=== PATIENT | male | born 1970 | race Caucasian/White ===

== ENCOUNTER 2021-01-28 14:33 | Emergency (ER) | payer OTHER, SELFPAY | END 2021-01-28 17:50 | disposition home or self-care (01) | LOC: ERS 14:33 | DX: S82.851A Displaced trimalleolar fracture of right lower leg, initial encounter for closed fracture (principal); E11.9 Type 2 diabetes mellitus without complications; W19.XXXA Unspecified fall, initial encounter | CPT/HCPCS: 29125 ==

== ENCOUNTER 2021-01-30 14:36 | Outpatient (CLI) | payer SELFPAY ==
[2021-01-31 02:32] LABS: SARS-CoV-2 PCR by NAA Not Detected (NotDetected)
== END 2021-01-30 14:37 | disposition home or self-care (01) ==
LOC: LABBT 14:36
PROVIDERS: ATTEND Orthopaedic Surgery
DX: Z01.812 Encounter for preprocedural laboratory examination (principal); S82.841A Displaced bimalleolar fracture of right lower leg, initial encounter for closed fracture; Z20.822 Contact with and (suspected) exposure to COVID-19
CPT/HCPCS: 87635; U0003; U0005

== ENCOUNTER 2021-02-04 11:22 | Inpatient (IN) | payer OTHER, SELFPAY ==
[2021-02-04] MEDS ORDERED: Midazolam HCl 2 mg/2 ml Vial ONE (11:41)
[2021-02-04] MEDS ORDERED: Fentanyl 100 MCG/2 ML VIAL ONE (11:42)
[2021-02-04] MEDS ORDERED: Insulin Regular 300 UNITS/3 ML VIAL ONE (12:26)
[2021-02-04] MEDS ORDERED: TETANUS AND DIPHTHERIA TOX/PF 0.5 ML DISP.SYRIN IM SCH (13:15)
[2021-02-04] MEDS ORDERED: Acetaminophen 325 MG TAB PO PRN (13:15)
[2021-02-04 14:17] VITALS: BMI 25.2
[2021-02-04] MEDS ORDERED: Dextrose 5% in Water 1,000 ML IV PRN (19:35)
[2021-02-04] MEDS ORDERED: Dextrose 50% Abboject 50 ML SYRINGE SLOW IVP PRN (19:35)
[2021-02-04 20:02] LABS: #Basophils 0.1 thou/uL (0.0-0.2); #Eosinphils 0.1 thou/uL (0.0-0.7); #Monocytes 0.7 thou/uL (0.11-0.59); #Neutrophils 6.5 thou/uL (1.40-6.50); %Eosinophils 1.2 % (0.0-10.0); %Lymphocytes 21.6 % (21.0-51.0); %Neutrophils 69.2 % (42.0-75.0); Hemoglobin 15.5 g/dL (14.0-18.0); Mean Corpuscular HGB CONC 33.9 g/dL (32.0-36.0); Mean Corpuscular Hemoglobin 29.6 pg (27.0-31.0); Mean Corpuscular Volume 87.3 fL (78.0-98.0); Mean Platelet Volume 9.4 fL (7.4-10.4); Platelet Count 296 thou/uL (130-400); RBC Distribution Width 11.5 % (11.5-14.5); Red Blood Cell (RBC) Count 5.22 mill/uL (4.70-6.10); White Blood Cell (WBC) Count 9.4 thou/uL (4.8-10.8)
[2021-02-04] MEDS: HumaLOG 300 UNITS/3 ML VIAL SC PRN (20:31)
[2021-02-04 20:36] LABS: Anion Gap 17 mmol/L (10-20); BUN (Urea Nitrogen) 21 mg/dL (8.9-20.6); Calc. Creatinine Clearance 98 mL/min (70-130); Calcium 9.3 mg/dL (7.8-10.44); Carbon Dioxide 24 mmol/L (22-29); Chloride 95 mmol/L (98-107); Glucose 387 mg/dL (70-105); Magnesium 1.8 mg/dL (1.6-2.6); Potassium 4.3 mmol/L (3.5-5.1); Sodium 132 mmol/L (136-145)
[2021-02-04 20:40] LABS: Hemoglobin A1c 11.8 % (4.0-6.0)
[2021-02-05] MEDS ORDERED: Oxymetazoline HCl 0.05% (30 ML BOT) NS PRN (01:48)
[2021-02-05] MEDS ORDERED: Loratadine/Pseudoephedrine 10/240 mg Tablet PO SCH (02:00)
[2021-02-05 05:46] LABS: #Basophils 0.1 thou/uL (0.0-0.2); #Eosinphils 0.2 thou/uL (0.0-0.7); #Lymphocytes 3.2 thou/uL (1.20-3.40); #Monocytes 0.9 thou/uL (0.11-0.59); #Neutrophils 6.4 thou/uL (1.40-6.50); %Basophils 0.7 % (0.0-1.0); %Eosinophils 1.7 % (0.0-10.0); %Lymphocytes 29.9 % (21.0-51.0); %Monocytes 7.9 % (0.0-10.0); %Neutrophils 59.8 % (42.0-75.0); Hemoglobin 15.5 g/dL (14.0-18.0); Mean Corpuscular HGB CONC 33.8 g/dL (32.0-36.0); Mean Corpuscular Hemoglobin 29.4 pg (27.0-31.0); Mean Corpuscular Volume 86.9 fL (78.0-98.0); Mean Platelet Volume 9.3 fL (7.4-10.4); Platelet Count 295 thou/uL (130-400); RBC Distribution Width 11.5 % (11.5-14.5); Red Blood Cell (RBC) Count 5.28 mill/uL (4.70-6.10); White Blood Cell (WBC) Count 10.7 thou/uL (4.8-10.8)
[2021-02-05 06:07] LABS: ALT (SGPT) 11 U/L (8-55); AST (SGOT) 12 U/L (5-34); Albumin 3.8 g/dL (3.5-5.0); Alkaline Phosphatase 137 U/L (40-110); Anion Gap 19 mmol/L (10-20); BUN (Urea Nitrogen) 24 mg/dL (8.9-20.6); Bilirubin, Total 0.7 mg/dL (0.2-1.2); Calc. Creatinine Clearance 112 mL/min (70-130); Calcium 9.2 mg/dL (7.8-10.44); Carbon Dioxide 22 mmol/L (22-29); Chloride 95 mmol/L (98-107); Globulin 3.8 g/dL (2.4-3.5); Glucose 300 mg/dL (70-105); Potassium 3.8 mmol/L (3.5-5.1); Protein, Total 7.6 g/dL (6.0-8.3); Sodium 132 mmol/L (136-145)
[2021-02-05] MEDS: HumaLOG 300 UNITS/3 ML VIAL SC PRN ×3 (06:32→22:31)
[2021-02-05] MEDS ORDERED: CEFAZOLIN 2 GM in Premix Bag 1 BAG IVPB SCH (07:15)
[2021-02-05] MEDS ORDERED: Lantus 1000 UNITS/10 ML VIAL SC SCH (07:30)
[2021-02-05] MEDS: Lisinopril 5 MG TAB PO SCH (08:25)
[2021-02-05] MEDS ORDERED: Ropivacaine 0.5% HCl/PF (150 MG/30 ML VIAL) ONE (10:31)
[2021-02-05] MEDS ORDERED: Ropivacaine 2% HCl/PF (20 MG/10 ML VIAL) ONE (10:31)
[2021-02-05] MEDS: Sodium Chloride 0.9% 1,000 ML IV SCH ×2 (12:11→22:32)
[2021-02-05] MEDS ORDERED: Midazolam HCl 2 mg/2 ml Vial ONE ×2 (16:25→16:53)
[2021-02-05] MEDS ORDERED: Fentanyl 100 MCG/2 ML VIAL ONE ×2 (16:53→18:13)
[2021-02-05] MEDS: metFORMIN 850 MG TAB PO SCH (18:08)
[2021-02-05] MEDS ORDERED: Ondansetron PF 4 MG/2 ML Vial ONE (18:20)
[2021-02-05] MEDS ORDERED: Ketorolac Tromethamine 30 MG/ML VIAL ONE (18:20)
[2021-02-05] MEDS ORDERED: Lidocaine 1% PF 5 ML VIAL ONE (18:20)
[2021-02-05] MEDS ORDERED: PROPOFOL 200 MG/20 ML VIAL ONE (18:20)
[2021-02-05] MEDS ORDERED: PHENYLEPHRINE-NS 100 MCG/ML 10 ML SYRINGE ONE (18:20)
[2021-02-05] MEDS ORDERED: Glycopyrrolate 0.2 MG/ML 5 ML SYRINGE ONE (18:20)
[2021-02-05] MEDS: CEFAZOLIN 2 GM in Premix Bag 1 BAG IVPB SCH (22:30)
[2021-02-05] MEDS: traMADol HCl 50 MG TAB PO PRN (22:33)
[2021-02-05] MEDS: Loratadine/Pseudoephedrine 10/240 mg Tablet PO SCH (22:34)
[2021-02-06] MEDS: Sodium Chloride 0.9% 1,000 ML IV SCH ×3 (02:51→22:47)
[2021-02-06 05:37] LABS: #Lymphocytes 0.8 thou/uL (1.20-3.40); #Monocytes 0.3 thou/uL (0.11-0.59); #Neutrophils 10.4 thou/uL (1.40-6.50); %Basophils 0.4 % (0.0-1.0); %Eosinophils 0.2 % (0.0-10.0); %Lymphocytes 6.9 % (21.0-51.0); %Monocytes 2.9 % (0.0-10.0); %Neutrophils 89.7 % (42.0-75.0); Hemoglobin 15.7 g/dL (14.0-18.0); Mean Corpuscular HGB CONC 34.7 g/dL (32.0-36.0); Mean Corpuscular Hemoglobin 30.7 pg (27.0-31.0); Mean Corpuscular Volume 88.3 fL (78.0-98.0); Mean Platelet Volume 9.7 fL (7.4-10.4); Platelet Count 274 thou/uL (130-400); RBC Distribution Width 11.4 % (11.5-14.5); White Blood Cell (WBC) Count 11.6 thou/uL (4.8-10.8)
[2021-02-06] MEDS: CEFAZOLIN 2 GM in Premix Bag 1 BAG IVPB SCH ×2 (05:49→15:00)
[2021-02-06] MEDS: HumaLOG 300 UNITS/3 ML VIAL SC PRN ×2 (05:50→12:05)
[2021-02-06] MEDS ORDERED: glipiZIDE 5 MG TAB PO SCH (07:30)
[2021-02-06] MEDS ORDERED: Loratadine/Pseudoephedrine 10/240 mg Tablet PO SCH (09:00)
[2021-02-06] MEDS: metFORMIN 850 MG TAB PO SCH ×2 (09:59→17:19)
[2021-02-06] MEDS: glipiZIDE 5 MG TAB PO SCH ×2 (09:59→15:13)
[2021-02-06] MEDS: Lisinopril 5 MG TAB PO SCH (10:03)
[2021-02-06] MEDS: Loratadine/Pseudoephedrine 10/240 mg Tablet PO SCH (22:46)
[2021-02-06] MEDS: traMADol HCl 50 MG TAB PO PRN (22:50)
[2021-02-07] MEDS: Sodium Chloride 0.9% 1,000 ML IV SCH ×2 (06:46→06:52)
[2021-02-07] MEDS: glipiZIDE 5 MG TAB PO SCH (06:52)
[2021-02-07] MEDS: HumaLOG 300 UNITS/3 ML VIAL SC PRN (06:56)
[2021-02-07] MEDS ORDERED: glipiZIDE 5 MG TAB PO SCH (07:30)
[2021-02-07] MEDS ORDERED: Cyclobenzaprine 10 MG TAB PO PRN (07:54)
[2021-02-07] MEDS ORDERED: metFORMIN 500 MG TAB PO SCH (09:00)
[2021-02-07] MEDS: Lisinopril 5 MG TAB PO SCH (09:14)
[2021-02-07 12:16] VITALS: BP 119/76; TEMP 98.2
== END 2021-02-07 15:45 | disposition home or self-care (01) | DRG 494 ==
LOC: SDC 11:22 → SURG A 13:05
PROVIDERS: ADMIT Orthopaedic Surgery; ATTEND Internal Medicine
PROC: 0QSG04Z Reposition Right Tibia with Internal Fixation Device, Open Approach (ICD-10-PCS; principal; 2021-02-05)
DX: S82.851A Displaced trimalleolar fracture of right lower leg, initial encounter for closed fracture (principal); Z20.822 Contact with and (suspected) exposure to COVID-19; E11.65 Type 2 diabetes mellitus with hyperglycemia; I10 Essential (primary) hypertension; W18.30XA Fall on same level, unspecified, initial encounter; Z91.14 Patient's other noncompliance with medication regimen; Z79.899 Other long term (current) drug therapy
CPT/HCPCS: 36415; 36416; 76000; 80048; 80053; 83036; 83735; 85025; C1713; J0690; J1815; J1885; J2250; J2405; J2704; J2795; J3010

== ENCOUNTER 2021-07-28 01:38 | Inpatient (IN) | payer MEDICAID, OTHER ==
[2021-07-28] MEDS ORDERED: Calcium Carbonate 500 MG ChewTAB PO PRN (08:13)
[2021-07-28] MEDS ORDERED: HYDROcodone/Acetaminophen 5/325 mg Tablet PO PRN (08:13)
[2021-07-28] MEDS ORDERED: Dextrose 50% Abboject 50 ML SYRINGE SLOW IVP PRN (08:13)
[2021-07-28] MEDS ORDERED: Senokot S 8.6-50 MG TAB PO PRN (08:13)
[2021-07-28] MEDS ORDERED: Bisacodyl 10 MG SUPP PR PRN (08:13)
[2021-07-28] MEDS ORDERED: HumaLOG 300 UNITS/3 ML VIAL SC PRN (08:13)
[2021-07-28] MEDS ORDERED: Dextrose 5% in Water 1,000 ML IV PRN (08:13)
[2021-07-28] MEDS ORDERED: Ondansetron PF 4 MG/2 ML Vial IVP PRN (08:13)
[2021-07-28] MEDS ORDERED: Morphine 2 MG/ML VIAL SLOW IVP PRN (08:17)
[2021-07-28 08:30] VITALS: BMI 26.0
[2021-07-28] MEDS ORDERED: Piperacillin/Tazobactam 3.375 GM in Sodium Chloride 0.9% 100 ML IVPB SCH (08:30)
[2021-07-28] MEDS: Enoxaparin Sodium 40 MG/0.4 ML SYRINGE SC SCH (08:51)
[2021-07-28] MEDS: Multivit, Therapeutic 1 TAB PO SCH (08:51)
[2021-07-28] MEDS: metFORMIN 500 MG TAB PO SCH ×3 (08:51→20:08)
[2021-07-28 10:35] LABS: SARS-CoV-2 NAA Rapid Test Not Detected (NotDetected)
[2021-07-28] MEDS: HumaLOG 300 UNITS/3 ML VIAL SC PRN ×2 (11:38→15:36)
[2021-07-28] MEDS: Guaifenesin DM 100-10/5 ML UDCUP PO PRN (15:36)
[2021-07-28] MEDS: Acetaminophen 325 MG TAB PO PRN ×2 (15:45→23:27)
[2021-07-28] MEDS: Piperacillin/Tazobactam 3.375 GM in Sodium Chloride 0.9% 100 ML IVPB SCH (20:10)
[2021-07-29] MEDS: glipiZIDE 5 MG TAB PO SCH (05:59)
[2021-07-29] MEDS: HumaLOG 300 UNITS/3 ML VIAL SC PRN (05:59)
[2021-07-29] MEDS: Guaifenesin DM 100-10/5 ML UDCUP PO PRN (06:04)
[2021-07-29 07:06] LABS: #Basophils 0.1 thou/uL (0.0-0.2); #Eosinphils 0.2 thou/uL (0.0-0.7); #Lymphocytes 1.7 thou/uL (1.20-3.40); #Monocytes 1.4 thou/uL (0.11-0.59); #Neutrophils 7.8 thou/uL (1.40-6.50); %Basophils 0.5 % (0.0-1.0); %Eosinophils 1.5 % (0.0-10.0); %Lymphocytes 14.9 % (21.0-51.0); %Monocytes 12.5 % (0.0-10.0); %Neutrophils 70.5 % (42.0-75.0); Hemoglobin 12.3 g/dL (14.0-18.0); Mean Corpuscular Volume 90.2 fL (78.0-98.0); Mean Platelet Volume 9.2 fL (7.4-10.4); Platelet Count 234 thou/uL (130-400); RBC Distribution Width 11.1 % (11.5-14.5); Red Blood Cell (RBC) Count 4.39 mill/uL (4.70-6.10); White Blood Cell (WBC) Count 11.1 thou/uL (4.8-10.8)
[2021-07-29 07:25] LABS: Anion Gap 16 mmol/L (10-20); BUN (Urea Nitrogen) 10 mg/dL (8.9-20.6); Calc. Creatinine Clearance 128 mL/min (70-130); Calcium 8.7 mg/dL (7.8-10.44); Carbon Dioxide 23 mmol/L (22-29); Chloride 97 mmol/L (98-107); Glucose 226 mg/dL (70-105); Potassium 4.3 mmol/L (3.5-5.1); Sodium 132 mmol/L (136-145)
[2021-07-29] MEDS ORDERED: Loratadine 10 MG TAB PO PRN (07:54)
[2021-07-29] MEDS ORDERED: Benzonatate 100 MG CAP PO PRN (07:54)
[2021-07-29] MEDS ORDERED: Sodium Chloride 0.65% Nasal 44 ML BOT EA NARE PRN (07:54)
[2021-07-29] MEDS ORDERED: Loperamide HCl 2 MG CAP PO PRN (07:54)
[2021-07-29] MEDS ORDERED: Zolpidem Tartrate 5 MG TAB PO PRN (07:54)
[2021-07-29] MEDS ORDERED: Ondansetron ODT 4 MG TAB PO PRN (07:54)
[2021-07-29] MEDS ORDERED: GUAIFENESIN SF SOLN 200 MG/10 ML UDCUP PO PRN (07:54)
[2021-07-29] MEDS ORDERED: Artificial Tear Sol 15 ML BOT EA EYE PRN (07:54)
[2021-07-29] MEDS ORDERED: Cepastat Lozenges 1 LOZ PO PRN (07:54)
[2021-07-29] MEDS ORDERED: hydrALAZINE 20 MG/ML VIAL SLOW IVP PRN (07:54)
[2021-07-29] MEDS ORDERED: Hydrocerin (Eucerin) Cream 120 gm Jar TOP PRN (07:54)
[2021-07-29] MEDS: Multivit, Therapeutic 1 TAB PO SCH (08:50)
[2021-07-29] MEDS: Enoxaparin Sodium 40 MG/0.4 ML SYRINGE SC SCH (08:50)
[2021-07-29] MEDS: metFORMIN 500 MG TAB PO SCH ×3 (08:50→20:34)
[2021-07-29] MEDS: Piperacillin/Tazobactam 3.375 GM in Sodium Chloride 0.9% 100 ML IVPB SCH ×3 (08:51→23:40)
[2021-07-29] MEDS: VANCOMYCIN 1.75 GM/350 ML BAG 1.75 GM in Premix Bag 1 BAG IVPB SCH ×2 (10:31→20:33)
[2021-07-29] MEDS ORDERED: Magnevist 469MG/ML 20 ML VIAL ONE (10:34)
[2021-07-29] MEDS ORDERED: traMADol HCl 50 MG TAB PO PRN (18:27)
[2021-07-29] MEDS: Gabapentin 300 MG CAP PO SCH (20:34)
[2021-07-30 06:56] LABS: #Eosinphils 0.2 thou/uL (0.0-0.7); #Lymphocytes 2.1 thou/uL (1.20-3.40); #Monocytes 1.3 thou/uL (0.11-0.59); #Neutrophils 6.1 thou/uL (1.40-6.50); %Basophils 0.5 % (0.0-1.0); %Eosinophils 2.4 % (0.0-10.0); %Lymphocytes 21.1 % (21.0-51.0); Hemoglobin 12.6 g/dL (14.0-18.0); Mean Corpuscular HGB CONC 32.7 g/dL (32.0-36.0); Mean Corpuscular Hemoglobin 29.4 pg (27.0-31.0); Mean Corpuscular Volume 89.8 fL (78.0-98.0); Mean Platelet Volume 8.9 fL (7.4-10.4); Platelet Count 273 thou/uL (130-400); Red Blood Cell (RBC) Count 4.28 mill/uL (4.70-6.10); White Blood Cell (WBC) Count 9.7 thou/uL (4.8-10.8)
[2021-07-30 07:16] LABS: ALT (SGPT) 13 U/L (8-55); AST (SGOT) 13 U/L (5-34); Albumin 3.4 g/dL (3.5-5.0); Alkaline Phosphatase 132 U/L (40-110); Anion Gap 19 mmol/L (10-20); BUN (Urea Nitrogen) 9 mg/dL (8.9-20.6); Bilirubin, Total 0.5 mg/dL (0.2-1.2); CRP (Inflammatory) 9.04 mg/dL (= or < 0.5); Calc. Creatinine Clearance 131 mL/min (70-130); Calcium 8.9 mg/dL (7.8-10.44); Carbon Dioxide 22 mmol/L (22-29); Chloride 100 mmol/L (98-107); Globulin 3.1 g/dL (2.4-3.5); Glucose 184 mg/dL (70-105); Magnesium 1.7 mg/dL (1.6-2.6); Phosphorus 2.8 mg/dL (2.3-4.7); Potassium 4.3 mmol/L (3.5-5.1); Protein, Total 6.5 g/dL (6.0-8.3); Sodium 137 mmol/L (136-145)
[2021-07-30] MEDS: Enoxaparin Sodium 40 MG/0.4 ML SYRINGE SC SCH (07:58)
[2021-07-30] MEDS: glipiZIDE 5 MG TAB PO SCH (07:58)
[2021-07-30] MEDS: metFORMIN 500 MG TAB PO SCH ×3 (07:58→19:30)
[2021-07-30] MEDS: Piperacillin/Tazobactam 3.375 GM in Sodium Chloride 0.9% 100 ML IVPB SCH ×2 (08:46→16:47)
[2021-07-30] MEDS: Multivit, Therapeutic 1 TAB PO SCH (08:47)
[2021-07-30] MEDS: Gabapentin 300 MG CAP PO SCH ×3 (08:47→19:30)
[2021-07-30] MEDS: VANCOMYCIN 1.75 GM/350 ML BAG 1.75 GM in Premix Bag 1 BAG IVPB SCH ×2 (08:47→19:31)
[2021-07-30] MEDS ORDERED: Sodium Chloride 0.9% 100 ML ONE (15:48)
[2021-07-30] MEDS ORDERED: Piperacillin/Tazobactam 3.375 GM VIAL ONE (15:48)
[2021-07-30] MEDS ORDERED: Fentanyl 100 MCG/2 ML VIAL ONE (16:42)
[2021-07-30] MEDS ORDERED: Ondansetron PF 4 MG/2 ML Vial ONE (17:03)
[2021-07-30] MEDS ORDERED: PROPOFOL 200 MG/20 ML VIAL ONE (17:03)
[2021-07-30] MEDS ORDERED: ePHEDrine 50 MG/ML VIAL ONE (17:03)
[2021-07-30] MEDS ORDERED: Dexamethasone 20 MG/5 ML VIAL ONE (17:03)
[2021-07-30] MEDS ORDERED: Lidocaine 1% PF 5 ML VIAL ONE (17:03)
[2021-07-30] MEDS ORDERED: PHENYLEPHRINE-NS 100 MCG/ML 10 ML SYRINGE ONE (17:03)
[2021-07-30] MEDS ORDERED: Promethazine HCl 25 MG/ML VIAL IM PRN (17:40)
[2021-07-30] MEDS ORDERED: HYDROmorphone 2 MG/ML VIAL SLOW IVP PRN (17:40)
[2021-07-30] MEDS ORDERED: Ketorolac Tromethamine 30 MG/ML VIAL IVP PRN (17:40)
[2021-07-30] MEDS ORDERED: Promethazine HCl 25 MG/ML VIAL IVPB PRN (17:40)
[2021-07-30] MEDS ORDERED: Ondansetron HCl/PF 4 MG/2 ML Vial IVP PRN (17:40)
[2021-07-30 20:41] LABS: Vancomycin, Trough 29.4 ug/mL
[2021-07-31] MEDS: Piperacillin/Tazobactam 3.375 GM in Sodium Chloride 0.9% 100 ML IVPB SCH ×3 (00:41→17:24)
[2021-07-31] MEDS: HumaLOG 300 UNITS/3 ML VIAL SC PRN ×2 (06:00→12:06)
[2021-07-31] MEDS: glipiZIDE 5 MG TAB PO SCH ×2 (06:02→17:24)
[2021-07-31] MEDS ORDERED: Vancomycin 1 GM in Premix Bag 1 BAG IVPB SCH (09:00)
[2021-07-31] MEDS: Gabapentin 300 MG CAP PO SCH ×3 (09:12→20:55)
[2021-07-31] MEDS: Multivit, Therapeutic 1 TAB PO SCH (09:13)
[2021-07-31] MEDS: metFORMIN 500 MG TAB PO SCH ×3 (09:13→17:25)
[2021-07-31] MEDS: Enoxaparin Sodium 40 MG/0.4 ML SYRINGE SC SCH (09:17)
[2021-07-31 09:44] LABS: Vancomycin, Random 15.5 ug/mL (See Comment)
[2021-07-31] MEDS: Lisinopril 5 MG TAB PO SCH (12:04)
[2021-07-31] MEDS: VANCOMYCIN 1.75 GM/350 ML BAG 1.75 GM in Premix Bag 1 BAG IVPB SCH ×2 (12:04→23:47)
[2021-07-31] MEDS ORDERED: Mag-Al Plus 1200 MG/1200 MG/120 MG/30 ML UDCUP PO PRN (17:40)
[2021-08-01] MEDS: HumaLOG 300 UNITS/3 ML VIAL SC PRN (06:35)
[2021-08-01 07:04] LABS: #Basophils 0.1 thou/uL (0.0-0.2); #Eosinphils 0.1 thou/uL (0.0-0.7); #Lymphocytes 2.5 thou/uL (1.20-3.40); #Neutrophils 7.8 thou/uL (1.40-6.50); %Basophils 0.8 % (0.0-1.0); %Eosinophils 1.2 % (0.0-10.0); %Lymphocytes 21.4 % (21.0-51.0); %Monocytes 8.7 % (0.0-10.0); Hemoglobin 13.7 g/dL (14.0-18.0); Mean Corpuscular HGB CONC 33.9 g/dL (32.0-36.0); Mean Corpuscular Hemoglobin 29.7 pg (27.0-31.0); Mean Corpuscular Volume 87.8 fL (78.0-98.0); Mean Platelet Volume 8.4 fL (7.4-10.4); Platelet Count 343 thou/uL (130-400); RBC Distribution Width 11.3 % (11.5-14.5); Red Blood Cell (RBC) Count 4.59 mill/uL (4.70-6.10); White Blood Cell (WBC) Count 11.5 thou/uL (4.8-10.8)
[2021-08-01 07:16] LABS: Hemoglobin A1c 10.7 % (4.0-6.0)
[2021-08-01 07:23] LABS: Anion Gap 11 mmol/L (10-20); BUN (Urea Nitrogen) 19 mg/dL (8.9-20.6); Calc. Creatinine Clearance 95 mL/min (70-130); Calcium 9.6 mg/dL (7.8-10.44); Carbon Dioxide 24 mmol/L (22-29); Chloride 104 mmol/L (98-107); Glucose 227 mg/dL (70-105); Potassium 4.2 mmol/L (3.5-5.1); Sodium 135 mmol/L (136-145)
[2021-08-01] MEDS ORDERED: Amoxicillin/Potassium Clav 875 MG TAB PO SCH (09:00)
[2021-08-01] MEDS: Multivit, Therapeutic 1 TAB PO SCH (10:02)
[2021-08-01] MEDS: Lisinopril 5 MG TAB PO SCH (10:02)
[2021-08-01] MEDS: glipiZIDE 5 MG TAB PO SCH ×2 (10:03→17:26)
[2021-08-01] MEDS: metFORMIN 500 MG TAB PO SCH ×2 (10:03→17:26)
[2021-08-01] MEDS: Enoxaparin Sodium 40 MG/0.4 ML SYRINGE SC SCH (10:04)
[2021-08-01 13:03] VITALS: TEMP 97.6
[2021-08-01] MEDS: Gabapentin 300 MG CAP PO SCH (16:02)
[2021-08-01 16:48] VITALS: BP 144/90
== END 2021-08-01 18:00 | disposition home or self-care (01) | DRG 617 ==
LOC: SURG A 01:38
PROVIDERS: ADMIT Student in an Organized Health Care Education/Training Program; ATTEND Internal Medicine
PROC: 0QBQ0ZZ Excision of Right Toe Phalanx, Open Approach (ICD-10-PCS; 2021-07-29)
PROC: 0JBQ0ZZ Excision of Right Foot Subcutaneous Tissue and Fascia, Open Approach (ICD-10-PCS; 2021-07-29)
PROC: 0Y6P0Z1 Detachment at Right 1st Toe, High, Open Approach (ICD-10-PCS; principal; 2021-07-30)
DX: E11.69 Type 2 diabetes mellitus with other specified complication (principal); M86.171 Other acute osteomyelitis, right ankle and foot; L02.611 Cutaneous abscess of right foot; E11.621 Type 2 diabetes mellitus with foot ulcer; Z20.822 Contact with and (suspected) exposure to COVID-19; E11.628 Type 2 diabetes mellitus with other skin complications; L97.519 Non-pressure chronic ulcer of other part of right foot with unspecified severity; E11.65 Type 2 diabetes mellitus with hyperglycemia; L03.031 Cellulitis of right toe; E11.42 Type 2 diabetes mellitus with diabetic polyneuropathy; B95.1 Streptococcus, group B, as the cause of diseases classified elsewhere; B95.7 Other staphylococcus as the cause of diseases classified elsewhere; Z82.49 Family history of ischemic heart disease and other diseases of the circulatory system; Z83.49 Family history of other endocrine, nutritional and metabolic diseases; Z91.14 Patient's other noncompliance with medication regimen; Z79.84 Long term (current) use of oral hypoglycemic drugs; Z79.1 Long term (current) use of non-steroidal anti-inflammatories (NSAID)
CPT/HCPCS: 36415; 36416; 80048; 80053; 80202; 83036; 83735; 84100; 85025; 86140; 87070; 87077; 87186; 87205; 88305; 88311; A9579; J1100; J1650; J1815; J2405; J2543; J2704; J3010; J3370; J3490; U0002

== ENCOUNTER 2023-06-02 09:08 | Day surgery (SDC) | payer MEDICARE, MEDICAID ==
[2023-05-29 13:30] VITALS: BMI 28.5
[~2023-06-02 09:08] MED LIST: EPINEPHrine 0.3 MG in Ophthalmic Irrigation Solution 500 ML IRR SCH; Midazolam HCl 2 mg/2 ml Vial ONE; fentaNYL 50 mcg/mL 1 mL Vial ONE
[2023-06-02] MEDS ORDERED: PHENYLephrine 2.5% Ophth Soln 15 ml Bottle ONE (10:01)
[2023-06-02] MEDS ORDERED: Cyclopentolate W/ Phenylephrin 40 DROP/2 ML BOT ONE (10:01)
[2023-06-02] MEDS ORDERED: Maxitrol 0.1% Opth Oint 3.5 GM TUBE ONE (11:45)
[2023-06-02] MEDS ORDERED: Bupivacaine 0.75% 10 ML VIAL ONE (11:45)
[2023-06-02] MEDS ORDERED: PROPOFOL 200 MG/20 ML VIAL ONE (11:45)
[2023-06-02] MEDS ORDERED: Lidocaine 4% PF 5 ML AMP ONE (11:45)
[2023-06-02] MEDS ORDERED: Lidocaine 1% PF 5 ML VIAL ONE (11:45)
[2023-06-02] MEDS ORDERED: CEFAZOLIN 1 GM VIAL ONE (11:45)
[2023-06-02] MEDS ORDERED: Triamcinolone 40 MG/ML VIAL ONE (11:45)
== END 2023-06-02 12:55 | disposition home or self-care (01) ==
LOC: SDC 09:08
PROVIDERS: ATTEND Ophthalmology Retina Specialist
PROC: 08T43ZZ Resection of Right Vitreous, Percutaneous Approach (ICD-10-PCS; principal; 2023-06-02)
PROC: 08QE3ZZ Repair Right Retina, Percutaneous Approach (ICD-10-PCS; 2023-06-02)
DX: H43.11 Vitreous hemorrhage, right eye (principal)
CPT/HCPCS: 67040; J3010; J0171; J0690; J2250; J2704; J3301; J3490

== ENCOUNTER 2025-05-30 19:11 | Emergency (ER) | payer MEDICARE ==
[2025-05-30] MEDS ORDERED: Ketorolac Tromethamine 30 MG (1 mL) VIAL ONE (20:31)
[2025-05-30] MEDS ORDERED: predniSONE 20 MG TAB ONE (20:40)
== END 2025-05-30 21:19 | disposition home or self-care (01) ==
LOC: ERS 19:11
DX: S33.5XXA Sprain of ligaments of lumbar spine, initial encounter (principal); S93.401A Sprain of unspecified ligament of right ankle, initial encounter; S70.01XA Contusion of right hip, initial encounter; E11.9 Type 2 diabetes mellitus without complications; Z79.84 Long term (current) use of oral hypoglycemic drugs; Z79.899 Other long term (current) drug therapy; W18.39XA Other fall on same level, initial encounter; Y93.89 Activity, other specified
CPT/HCPCS: 72170; 73502; 73610; 96372; 99283; J1885; J7512